=== PATIENT | female | born 1980 | race African-American/Black ===

== ENCOUNTER 2023-07-27 09:51 | Emergency (ER) | payer MEDICAID ==
[~2023-07-27] VITALS: Ht 162.6 cm; Wt 60.0 kg
[2023-07-27 10:01] VITALS: O2SAT 98
[2023-07-27] MEDS: ACETAMINOPHEN 325MG TABLET PO ONE (12:13)
[2023-07-27 12:29] VITALS: BP 140/89; PULSE 98; RESP 20; TEMP 98.7
== END 2023-07-27 12:30 | disposition home or self-care (01) ==
LOC: ER 09:51
DX: S00.12XA Contusion of left eyelid and periocular area, initial encounter (principal); S00.11XA Contusion of right eyelid and periocular area, initial encounter; I10 Essential (primary) hypertension; Y08.89XA Assault by other specified means, initial encounter; Y93.89 Activity, other specified; Y92.89 Other specified places as the place of occurrence of the external cause; Y99.8 Other external cause status
CPT/HCPCS: 70486; 81025; 99284

== ENCOUNTER 2024-06-14 21:57 | Emergency (ER) | payer MEDICAID ==
[~2024-06-14] VITALS: Ht 152.4 cm; Wt 50.0 kg
[2024-06-14 21:59] VITALS: O2SAT 98
[2024-06-14 23:28] LABS: HEMATOCRIT. 34.6 % (36.0-48.0); HEMOGLOBIN. 11.3 g/dL (12.0-16.0); MEAN CORPUSCULAR HEMOGLOBIN 31.9 pg (28.0-32.0); MEAN CORPUSCULAR HGB CONC 32.7 g/dL (31.0-37.0); MEAN CORPUSCULAR VOLUME 97.3 fL (81.0-99.0); MEAN PLATELET VOLUME 9.9 fl (7.4-10.4); PLATELET 109 x1000/uL (130-400); RED BLOOD CELL COUNT 3.55 mill/uL (4.2-5.4); RED CELL DISTRIBUTION WIDTH 17.7 % (11.6-14.6); WHITE BLOOD COUNT 5.5 x1000/uL (4.5-11.0)
[2024-06-14 23:32] LABS: CLARITY URINE TURBID (CLEAR); COLOR URINE DARK YELLOW (YELLOW); GLUCOSE URINE NEGATIVE (NEGATIVE); KETONES URINE TRACE (NEGATIVE); LEUKOCYTE ESTERASE URINE 2+ (NEGATIVE); NITRITE URINE POSITIVE (NEGATIVE); OCCULT BLOOD URINE NEGATIVE (NEGATIVE); PROTEIN URINE 1+ (NEGATIVE); SPECIFIC GRAVITY URINE 1.025 (1.005-1.030)
[2024-06-14 23:35] LABS: DIFFERENTIAL COMMENT 1
[2024-06-14 23:38] LABS: CARBON DIOXIDE 26 mEq/L (21-32); CHLORIDE 103 mEq/L (98-107); POTASSIUM 3.7 mEq/L (3.5-5.1); SODIUM 137 mEq/L (136-145)
[2024-06-14 23:39] LABS: CALCIUM 9.9 mg/dL (8.7-10.4)
[2024-06-14 23:43] LABS: CREATININE 0.4 mg/dL (0.6-1.0); GLUCOSE 81 mg/dL (70-105)
[2024-06-14 23:44] LABS: ETHANOL BLOOD 27 mg/dL (<10)
[2024-06-14 23:45] LABS: ACETAMINOPHEN < 2 ug/mL (10-30); ALANINE AMINOTRANSFERASE 16 IU/L (10-49); ASPARTATE AMINOTRANSFERASE 71 IU/L (<34)
[2024-06-14 23:46] LABS: BILIRUBIN DIRECT 0.6 mg/dL (<=3.0); BILIRUBIN TOTAL 1.1 mg/dL (0.1-1.0); PROTEIN TOTAL 7.9 g/dL (6.0-8.3)
[2024-06-14 23:53] LABS: UREA NITROGEN BLOOD < 5 mg/dL (9-23)
[2024-06-14 23:55] LABS: *AMPHETAMINES SCREEN URINE NEGATIVE (NEGATIVE); *BARBITURATES SCREEN URINE NEGATIVE (NEGATIVE); *BENZODIAZEPINES SCREEN URINE NEGATIVE (NEGATIVE); *COCAINE SCREEN URINE NEGATIVE (NEGATIVE)
[2024-06-14 23:56] LABS: CANNABINOID URINE SCREEN PRESUMPTIVE POSITIVE (NEGATIVE); ECSTASY MDMA SCREEN URINE NEGATIVE (NEGATIVE); METHADONE URINE SCREEN NEGATIVE (NEGATIVE); OPIATES URINE SCREEN NEGATIVE (NEGATIVE); PHENCYCLIDINE URINE SCREEN NEGATIVE (NEGATIVE)
[2024-06-14] MEDS: OLANZAPINE 10 MG/VIAL IM ONE (23:56)
[2024-06-14] MEDS: LORAZEPAM 2MG/ML INJ IM ONE (23:56)
[2024-06-15 00:34] LABS: HCG SCREEN NEGATIVE
[2024-06-15] MEDS: AZITHROMYCIN 500 MG TABLET PO NR (01:12)
[2024-06-15] MEDS: CEFTRIAXONE SODIUM 500MG VIAL IM NR (01:12)
[2024-06-15] MEDS: LIDOCAINE HCL 1% 20ML VIAL INFIL NR (01:12)
[2024-06-15] MEDS: HALOPERIDOL LACTATE 5MG/ML VIAL IM ONE ×2 (02:18→21:45)
[2024-06-15] MEDS: DIPHENHYDRAMINE 50MG/ML VIAL IM ONE (02:18)
[2024-06-15 04:53] LABS: SQUAMOUS EPITHELIAL CELL URINE 1+ /lpf (RARE/1+)
[2024-06-15 04:56] LABS: RBC URINE 0-2 /hpf (0-2); WBC URINE 0-2 /hpf (0-2)
[2024-06-15 04:58] LABS: BACTERIA URINE 2+
[2024-06-15 06:24] LABS: PLATELET ESTIMATE SLIGHTLY DECREASED
[2024-06-15] MEDS: OLANZAPINE 5MG TABLET ODT PO SCH (09:36)
[2024-06-16] MEDS: NITROFURANTOIN MACROCRYSTAL 25MG CAPSULE PO NR (18:00)
[2024-06-16] MEDS: NITROFURANTOIN 100MG M/M CAPSULE PO NR (22:00)
[2024-06-17] MEDS: LORAZEPAM 2MG/ML INJ IM ONE (02:13)
[2024-06-17 18:27] VITALS: BP 97/72; PULSE 109; RESP 17; TEMP 36.9; O2SAT 98
== END 2024-06-17 19:12 ==
LOC: ER 21:57
DX: F20.9 Schizophrenia, unspecified (principal); R45.850 Homicidal ideations; N39.0 Urinary tract infection, site not specified; F17.200 Nicotine dependence, unspecified, uncomplicated; F41.9 Anxiety disorder, unspecified; I10 Essential (primary) hypertension; Z86.73 Personal history of transient ischemic attack (TIA), and cerebral infarction without residual deficits; Z20.822 Contact with and (suspected) exposure to COVID-19
CPT/HCPCS: 80076; 80305; 80048; 81003; 80307; 80329; 80320; 84703; 85025; 36415; 96372 ×3; 99285; 87426; J3490; J2060 ×2; Z7610 ×2; G0480